=== PATIENT | male | born 1980 | race Two or more races ===

== ENCOUNTER 2019-06-28 22:32 | Emergency (ER) | payer BC ==
[~2019-06-28] VITALS: Ht 180.3 cm; Wt 77.1 kg
--- NOTE | 2019-06-28 22:43 | NUR ---
CALLED PT IN WAITING ROOM. NO RESPONSE.
[2019-06-28 22:48] VITALS: BP 133/85
--- NOTE | 2019-06-28 22:55 | NUR ---
PT CAME INTO THE ED C/C "HIGH BLOOD PRESSURE", HEADACHE, COLD SWEATS, AT A TODAY. PT AAOX4, VSS, NO ACUTE DISTRESS NOTED. WILL MONITOR
[2019-06-28] MEDS ORDERED: LORAZEPAM 1 MG TABLET PO ONE (23:30)
[2019-06-28] MEDS ORDERED: LORAZEPAM 1 MG TABLET ONE (23:32)
--- NOTE | 2019-06-29 00:26 | NUR ---
Patient discharged to home in stable condition. Written and verbal after care instructions given. Patient verbalizes understanding of instruction.
== END 2019-06-29 00:27 | disposition home or self-care (01) ==
LOC: ER 22:37
DX: F41.9 Anxiety disorder, unspecified (principal); R00.2 Palpitations; R51 Headache